=== PATIENT | female | born 1945 | race Caucasian/White ===

== ENCOUNTER 2018-04-26 20:47 | Inpatient (IN) | payer MEDICARE, MEDICAID ==
[2018-04-26 21:34] VITALS: BP 159/82
[2018-04-26] MEDS ORDERED: Morphine Sulfate 4 mg/mL 1mL Syr IVP PRN ×2 (22:14→22:15)
[2018-04-27] MEDS: INSULIN ASPART SLIDING SCALE 100 UNITS/ML UNIT SUBQ SCH ×3 (06:36→18:14)
[2018-04-27 07:37] LABS: % BASOPHILS 0.8 % (0.0-2.0); % EOSINOPHILS 1.6 % (0.0-5.0); % LYMPHOCYTES 41.7 % (20.0-50.0); % MONOCYTES 6.5 % (2.0-10.0); % NEUTROPHILS 49.4 % (40.0-80.0); BASOPHILE ABSOLUTE 0.1 Th/cumm (0-0.2); EOSINOPHILE ABSOLUTE 0.1 Th/cmm (0.1-0.4); HEMATOCRIT 40.1 % (41.0-60); HEMOGLOBIN 13.2 gm/dL (12-16); LYMPHOCYTE ABSOLUTE 2.8 Th/cmm (1.5-3.0); MEAN CELL VOLUME 79.1 fl (81-100); MEAN CORPUSCULAR HGB CONC 32.9 pg (28.0-36.0); MEAN PLATELET VOLUME 10.3 fl; MONOCYTE ABSOLUTE 0.4 Th/cmm (0.3-1.0); NEUTROPHILE ABSOLUTE 3.4 Th/cmm (1.8-8.0); PLATELET COUNT 181 Th/cmm (150-400); RED BLOOD COUNT 5.06 Mil/cmm (3.80-5.20); RED CELL DISTRIBUTION WIDTH 13.8 % (11.5-20.0); WHITE BLOOD COUNT 6.8 Th/cmm (4.8-10.8)
[2018-04-27 07:49] LABS: ANION GAP 9.7 (7.0-16.0); BUN - UREA NITROGEN 21 mg/dL (7-25); CALCIUM SERUM 9.2 mg/dL (8.6-10.3); CARBON DIOXIDE 28.6 mEq/L (21.0-31.0); CHLORIDE 104 mEq/L (98-107); CREATININE - SERUM 0.7 mg/dL (0.6-1.2); GFR AFRICAN-AMERICAN > 60.0 ml/min (>90); GFR NON AFRICAN-AMERICAN > 60.0 ml/min; GLUCOSE 62 mg/dL (70-105); POTASSIUM SERUM 3.3 mEq/L (3.5-5.1); SODIUM SERUM 139 mEq/L (136-145)
[2018-04-27] MEDS: Aspirin 81mg Chewable Tab PO SCH (09:53)
--- NOTE | 2018-04-27 12:17 | Diagnostic Imaging Report ---
Carotid ultrasound HISTORY: TIA COMPARISON: None Technique: Longitudinal and transverse sonographic sector images of the carotid arteries were obtained with doppler analysis. FINDINGS: Exam right-sided demonstrates intimal thickening and mild to moderate atherosclerotic vascular disease. No evidence of elevated velocities or velocity ratios. Exam left side demonstrates intimal thickening and moderate to severe generalized atherosclerotic vascular disease. No evidence of elevated velocities. There is elevated velocity ratio on the left side measuring 2.5. Antegrade vertebral artery flow is demonstrated bilaterally. IMPRESSION: Bilateral generalized atherosclerosis greatest on the left side with moderate to severe atherosclerosis seen on the left side. There is also elevated velocity ratio on the left side. Note 50-69% vessel narrowing on the left side cannot be excluded. If indicated dedicated CT angiography of the neck may be obtained for further assessment.
[2018-04-27 16:13] LABS: CHOLESTEROL 279 mg/dL (<200); HDL -HIGH DENSITY LIPOPROTEIN 47 mg/dL (23-92); TRIGLYCERIDES 298 mg/dL (<150)
[2018-04-27] MEDS: Hydrocodone/APAP 5mg/325mg Tab PO PRN (20:26)
--- NOTE | 2018-04-27 20:48 | History & Physical ---
ADMIT DATE: 04/26/2018 A 72-year-old female patient transferred from [place] for TIA and possible stroke. HISTORY OF PRESENT ILLNESS: A 72-year-old female complaining of headache and facial numbness and tingling, presented with intermittent moderate pressure-like headache and also experienced left facial tingling and was seen in the Emergency Room and had a complete workup. The patient possibly had a mini stroke according to the M.D. and the patient was transferred in stable condition. The patient is known to have history of coronary artery disease status post coronary artery bypass surgery, history of hypertension, hypercholesterolemia, neuropathy. PHYSICAL EXAMINATION: GENERAL: The patient was alert. VITAL SIGNS: Blood pressure 184/72, heart rate was 80, respirations was normal. NECK: Supple, nontender. LUNGS: Clear. CARDIOVASCULAR SYSTEM: S1, S2 heard. ABDOMEN: Soft. Bowel sounds are heard. NEUROLOGIC: She was alert. The patient has no facial asymmetry, but some numbness in the left side. Tongue was in midline. The patient does admit that insight appears to be normal and the patient had ataxia. LABORATORY DATA: CAT scan showed no findings. She had CBC with white count 6.6, hemoglobin 13, hematocrit 38. DIAGNOSES: 1. Transient cerebral ischemia. 2. Rule out cerebrovascular accident. 3. History of coronary artery disease. 4. Diabetes. 5. Essential hypertension. 6. Hypercholesterolemia. 7. Hypothyroidism. PLAN: The patient is being admitted and I will go ahead and do a neurological and cardiological workup and I will follow the patient. JOB# [id number] [id number]
[2018-04-28] MEDS: INSULIN ASPART SLIDING SCALE 100 UNITS/ML UNIT SUBQ SCH ×5 (00:20→23:56)
[2018-04-28] MEDS: Aspirin 81mg Chewable Tab PO SCH (09:19)
--- NOTE | 2018-04-28 16:16 | Cardiology ---
04/28/[address] Sanchez. M-MODE ECHOCARDIOGRAM: Mitral valve, anterior leaflet of mitral valve shows normal excursion, EF velocity. Posterior leaflet of the mitral valve shows normal excursion. Left ventricular posterior wall shows normal thickness, excursion. Interventricular septum showed normal thickness, excursion. Ejection fraction 50%. Left atrium normal. Aortic root shows normal dimension, normal excursion of aortic leaflets. Short axis view of mitral valve normal. Short axis view of aortic valve normal. Apical four chamber view showed normal sized left ventricle, left atrium, right ventricle, right atrium, tricuspid and mitral valve. Ejection fraction is 50%. CONCLUSION: Hypertrophy of the left ventricle, ejection fraction 50%. Doppler study shows trace pulmonary regurgitation, right ventricular systolic pressure 30 mmHg. JOB# [id number]
[2018-04-28 16:22] LABS: ANION GAP 9.4 (7.0-16.0); BUN - UREA NITROGEN 31 mg/dL (7-25); CALCIUM SERUM 9.5 mg/dL (8.6-10.3); CARBON DIOXIDE 27.6 mEq/L (21.0-31.0); CHLORIDE 99 mEq/L (98-107); CREATININE - SERUM 0.9 mg/dL (0.6-1.2); GFR AFRICAN-AMERICAN > 60.0 ml/min (>90); GFR NON AFRICAN-AMERICAN > 60.0 ml/min; GLUCOSE 203 mg/dL (70-105); SODIUM SERUM 132 mEq/L (136-145)
[2018-04-28 20:41] LABS: A1C % 7.6 % (4.0-6.0)
[2018-04-28] MEDS: Hydrocodone/APAP 5mg/325mg Tab PO PRN (23:50)
[2018-04-29] MEDS: Hydrocodone/APAP 5mg/325mg Tab PO PRN ×3 (05:28→22:01)
[2018-04-29] MEDS: INSULIN ASPART SLIDING SCALE 100 UNITS/ML UNIT SUBQ SCH ×3 (05:51→17:55)
[2018-04-29] MEDS: Aspirin 81mg Chewable Tab PO SCH (09:35)
[2018-04-29] MEDS ORDERED: IOHEXOL 300mgI/mL 100 ML VIAL IVP ONE (10:54)
--- NOTE | 2018-04-29 10:59 | Consultation ---
DATE OF CONSULTATION: 04/26/[address] Sanchez. HISTORY AND PHYSICAL: This 72-year-old female patient complaining of headache with numbness and tingling of the face. The patient came to the Emergency Room and the patient is admitted for TIA. No history of chest pain, no palpitation. PAST MEDICAL HISTORY: The patient has a history of angina, coronary artery bypass, hypertension, hyperlipidemia, diabetes mellitus type 2, hypothyroidism, diabetic peripheral neuropathy. FAMILY HISTORY: Unremarkable. SOCIAL HISTORY: No history of smoking, alcohol abuse. ALLERGIES: None. PHYSICAL EXAMINATION: VITAL SIGNS: Blood pressure 184/72, pulse 80, respirations 22. HEAD: Normocephalic. No lumps or bumps. EYES: Pupils equal, reactive to light. Fundi show AV nicking, sclerae white, conjunctivae pink. NECK: Carotid 2+. Normal upstroke. JVD flat. Thyroid not palpable. Lymph nodes not palpable. CHEST: Shows increased AP diameter. No kyphosis or scoliosis. HEART: PMI fifth intercostal space with lateral to midclavicular line. S1, S2. No S3, S4, soft systolic murmur. ABDOMEN: Soft. Liver, spleen not palpable. No organomegaly. Bowel sounds active. NEUROLOGIC: The patient has numbness in the face. CLINICAL IMPRESSION: Transient ischemic attack, stable angina, coronary artery bypass, hypertension, hyperlipidemia, diabetes mellitus type 2, hypothyroidism, diabetic peripheral neuropathy. PLAN: The patient will continue present care. The patient to have echocardiogram. [facility]# [id number]
--- NOTE | 2018-04-29 11:25 | Consultation ---
DATE OF CONSULTATION: 04/29/2018 SURGICAL CONSULTATION REFERRING PHYSICIAN: Dr. Sanchez. REASON FOR CONSULTATION: Small stroke. Thank you for referring this patient to me. HISTORY OF PRESENT ILLNESS: This is a 72-year-old female who was alert and awake, transferred from [place] because of TIA. In the Emergency Room, the patient was noted to have numbness and tingling of the right upper extremity with some numbness and tingling of left face as well. She had a similar episode 5 years ago. PAST MEDICAL HISTORY: Other history includes coronary artery disease, diabetes, hypertension, hypercholesterolemia, and hypothyroidism. LABORATORY STUDIES: On this admission are essentially normal. Carotid study; however, shows [id number] stenosis involving the left carotid artery. PHYSICAL EXAMINATION: The patient continues some tingling in the right upper extremity, no numbness or weakness is noted. Left facial numbness is essentially gone. In view of the carotid stenosis on ultrasound, this will likely reflect the etiology of the TIA. We will order CT angiogram of the head and neck to determine the extent of vascular disease and recommend treatment as necessary. [facility]# [id number]
--- NOTE | 2018-04-29 12:25 | Diagnostic Imaging Report ---
Exam: CT examination of brain. HISTORY: Left carotid stenosis. Total DLP equals 661 CTDI equals 36.1 Findings: Multiple contiguous thin section of the brain were obtained from the base of skull to the vertex without administration intravenous contrast material. No prior studies available comparison. The study demonstrates normal density brain parenchyma. Normal enhancement pattern of the intracranial vasculature is noted. There is no evidence for hemorrhage midline shift or edema. The cerebellum is intact. There is evidence for low density area in left cerebellar hemisphere most likely represent old infarct or encephalomalacia subarachnoid cyst. Bony calvarium is normal. The paranasal sinuses are well aerated. IMPRESSION: Unremarkable examination of brain with contrast material Questionable old left cerebellar infarct versus encephalomalacia.
[2018-04-29] MEDS ORDERED: IOHEXOL 350mgI/mL 150mL IV ONE (16:22)
--- NOTE | 2018-04-29 16:43 | Internal Medicine Prog Note ---
Internal Medicine Subjective - Subjective Service Date: 04/29/18 Patient seen and examined:: with staff Patient is:: awake, verbal Per staff patient has:: tolerating meds Internal Medicine Objective - Results Result Diagrams: 04/27/18 07:00 04/28/18 16:02 Recent Labs: Laboratory Last Values WBC 6.8 Th/cmm (4.8-10.8) 04/27/18 07:00 RBC 5.06 Mil/cmm (3.80-5.20) 04/27/18 07:00 Hgb 13.2 gm/dL (12-16) 04/27/18 07:00 Hct 40.1 % (41.0-60) L 04/27/18 07:00 MCV 79.1 fl (81-100) L 04/27/18 07:00 MCH 26.0 pg (27.0-31.0) L 04/27/18 07:00 MCHC Differential 32.9 pg (28.0-36.0) 04/27/18 07:00 RDW 13.8 % (11.5-20.0) 04/27/18 07:00 Plt Count 181 Th/cmm (150-400) 04/27/18 07:00 MPV 10.3 fl 04/27/18 07:00 Neutrophils % 49.4 % (40.0-80.0) 04/27/18 07:00 Lymphocytes % 41.7 % (20.0-50.0) 04/27/18 07:00 Monocytes % 6.5 % (2.0-10.0) 04/27/18 07:00 Eosinophils % 1.6 % (0.0-5.0) 04/27/18 07:00 Basophils % 0.8 % (0.0-2.0) 04/27/18 07:00 Sodium 132 mEq/L (136-145) L 04/28/18 16:02 Potassium 4.0 mEq/L (3.5-5.1) 04/28/18 16:02 Chloride 99 mEq/L (98-107) 04/28/18 16:02 Carbon Dioxide 27.6 mEq/L (21.0-31.0) 04/28/18 16:02 Anion Gap 9.4 (7.0-16.0) 04/28/18 16:02 BUN 31 mg/dL (7-25) H 04/28/18 16:02 Creatinine 0.9 mg/dL (0.6-1.2) 04/28/18 16:02 Est GFR ( Amer) > 60.0 ml/min (>90) 04/28/18 16:02 Est GFR (Non-Af Amer) > 60.0 ml/min 04/28/18 16:02 BUN/Creatinine Ratio 34.4 04/28/18 16:02 Glucose 203 mg/dL (70-105) H 04/28/18 16:02 POC Glucose 169 MG/DL (70 - 105) H 04/29/18 12:05 Hemoglobin A1c % 7.6 % (4.0-6.0) H 04/28/18 16:02 Calcium 9.5 mg/dL (8.6-10.3) 04/28/18 16:02 Troponin I 0.01 ng/mL (0.01-0.05) 04/27/18 15:15 Triglycerides 298 mg/dL (<150) H 04/27/18 07:00 Cholesterol 279 mg/dL (<200) H 04/27/18 07:00 LDL Cholesterol Direct 171 mg/dL (75-193) 04/27/18 07:00 HDL Cholesterol 47 mg/dL (23-92) 04/27/18 07:00 TSH 2.94 uIU/ml (0.34-5.60) 04/27/18 07:00 - Physical Exam Vitals and I&O: Vital Signs Temp 96.9 F 04/29/18 12:00 Pulse 63 04/29/18 12:00 Resp 18 04/29/18 13:00 BP 147/54 04/29/18 12:00 Pulse Ox 96 04/29/18 12:00 Intake & Output 04/28/18 04/29/18 04/29/18 18:59 06:59 18:59 Intake Total 150 Balance 150 Weight (lbs) 158 lb 159 lb 9 oz Intake: Oral 150 Other: # Voids 2 # Bowel Movements 0 Stool Characteristics Soft Soft Soft Weight Source Bedscale Bedscale Active Medications: Current Medications Acetaminophen (Tylenol) 650 mg PO Q6H PRN PRN Reason: MILD PAIN OR HEADACHE Stop: 06/25/18 22:12 Last Admin: 04/28/18 18:11 Dose: 650 mg Acetaminophen/Hydrocodone Bitart ([place] 5mg/325mg) 1 tab PO Q6H PRN PRN Reason: Headache Stop: 06/26/18 19:47 Last Admin: 04/29/18 14:42 Dose: 1 tab Aspirin (Aspirin Chewable) 81 mg PO DAILY RM Stop: 06/26/18 08:59 Last Admin: 04/29/18 09:35 Dose: 81 mg Insulin Aspart (Novolog Insulin Sliding Scale) 0 units SUBQ Q6HR RM; Protocol Stop: 06/26/18 05:59 Last Admin: 04/29/18 12:30 Dose: 2 units Metoprolol Succinate (Toprol Xl) 25 mg PO DAILY RM Stop: 06/26/18 08:59 Last Admin: 04/29/18 09:35 Dose: 25 mg Morphine Sulfate (Morphine) 2 mg IVP Q4HR PRN PRN Reason: Pain (Severe) Stop: 06/25/18 22:13 Morphine Sulfate (Morphine) 1 mg IVP Q4HR PRN PRN Reason: Pain (Moderate) Stop: 06/25/18 22:14 Ondansetron HCl (Zofran) 4 mg IV Q6H PRN PRN Reason: Nausea / Vomiting Stop: 06/25/18 22:15 Temazepam (Restoril) 30 mg PO HS PRN; Protocol PRN Reason: Insomnia Stop: 06/26/18 22:51 General: weak, alert HEENT: NC/AT, PERRLA Neck: Supple Lungs: CTAB Cardiovascular: RRR, Normal S1, Normal S2, without murmur Abdomen: soft, non-tender, non-distended Neurological: alert Internal Medicine Assmt/Plan - Assessment Assessment: TIA R/O CVA- CT HEAD NEGATIVE, OLD INFARCT HX CAD DM HTN HYPERCHOLESTEREMIA HYPOTHYROIDISM - Plan Plan: CTA NECK TO BE DONE TODAY CBC/BMP IN AM FALL PRECAUTIONS NEUROLOGY TO FOLLOW UP APPRECIATE CARDIOLOGY RECOMMENDATIONS CONTINUE CURRENT PLAN OF CARE Nutritional Asmnt/Malnutr-PDOC - Dietary Evaluation Malnutrition Findings (Please click <Entered> for more info): Nutritional Asmnt/Malnutrition Start: 04/29/18 13: 51 Text: Status: Active Freq: Protocol: Document 04/29/18 13:51 LLUC (Rec: 04/29/18 14:02 LLUC [email or web address]) Nutritional Asmnt/Malnutrition Patient General Information Nutritional Screening Moderate Risk Diagnosis TIA Pertinent Medical Hx/Surgical Hx CAD s/p bypass, HTN, Hypercholesterolemia, neuropathy, DM, hypothyroidism Subjective Information PO intake 75-100% per EMR. Current Diet Order/ Nutrition Support CCHO - 45g Pertinent Medications novolog, zofran Pertinent Labs 04/28/18: Na 132, BUN 31, Crea 0 .9, Gluc 203, POC 139-224, A1C 7.6 Nutritional Hx/Data Height 5 ft Height (Calculated Centimeters) 152.4 Current Weight (lbs) 159 lb Weight (Calculated Kilograms) 72.1 Weight (Calculated Grams) 33238.2 [place] Body Weight 100 % [place] Body Weight 159 Body Mass Index (BMI) 31.0 Weight Status Obese GI Symptoms Skin Integrity/Comment: Intact but slightly moist, jose 14 per nursing Current %PO Good (75-100%) Estimated Nutritional Goals BEE in Kcals: Adj wt of IBW Calories/Kcals/Kg 25-30 Kcals/Kg Kcals Calculated 6090-6667 Protein: Adj wt of IBW Protein g/k.8-1 g/Kg Protein Calculated 42-52g Fluid: ml 4375-3799 mL/day (1mL/kcal) Nutritional Problem 1. Problem Problem Altered nutrition-related labs Etiology insulin resistance Signs/Symptoms: hyperglycemia, POC 139-224, A1C 7.6% Malnutrition Related to Morbid Obesity Malnutrition related to morbid obesity No Intervention/Recommendation Comments 1. Recommend continuing current diet order. 2. Recommend MD to adjust insulin regimen to minimize hyperglycemia. Expected Outcomes/Goals Expected Outcomes/Goals Goal: PO intake to meet at least 75% of nutritional needs . Monitor PO intake, wt, labs and skin integrity F/U as moderate risk in 3-5 days, 05/02-05/04
[2018-04-30] MEDS: INSULIN ASPART SLIDING SCALE 100 UNITS/ML UNIT SUBQ SCH ×4 (06:00→17:36)
[2018-04-30 07:12] LABS: % BASOPHILS 0.8 % (0.0-2.0); % EOSINOPHILS 1.9 % (0.0-5.0); % LYMPHOCYTES 41.9 % (20.0-50.0); % MONOCYTES 7.7 % (2.0-10.0); % NEUTROPHILS 47.7 % (40.0-80.0); BASOPHILE ABSOLUTE 0.1 Th/cumm (0-0.2); EOSINOPHILE ABSOLUTE 0.1 Th/cmm (0.1-0.4); HEMATOCRIT 37.2 % (41.0-60); HEMOGLOBIN 12.2 gm/dL (12-16); LYMPHOCYTE ABSOLUTE 3.2 Th/cmm (1.5-3.0); MEAN CELL VOLUME 80.2 fl (81-100); MEAN CORPUSCULAR HEMOGLOBIN 26.2 pg (27.0-31.0); MEAN CORPUSCULAR HGB CONC 32.7 pg (28.0-36.0); MEAN PLATELET VOLUME 10.1 fl; MONOCYTE ABSOLUTE 0.6 Th/cmm (0.3-1.0); NEUTROPHILE ABSOLUTE 3.6 Th/cmm (1.8-8.0); PLATELET COUNT 199 Th/cmm (150-400); RED BLOOD COUNT 4.63 Mil/cmm (3.80-5.20); RED CELL DISTRIBUTION WIDTH 13.3 % (11.5-20.0); WHITE BLOOD COUNT 7.6 Th/cmm (4.8-10.8)
[2018-04-30 07:35] LABS: ANION GAP 10.5 (7.0-16.0); BUN - UREA NITROGEN 29 mg/dL (7-25); CALCIUM SERUM 9.1 mg/dL (8.6-10.3); CARBON DIOXIDE 27.2 mEq/L (21.0-31.0); CHLORIDE 101 mEq/L (98-107); CREATININE - SERUM 0.9 mg/dL (0.6-1.2); GFR AFRICAN-AMERICAN > 60.0 ml/min (>90); GFR NON AFRICAN-AMERICAN > 60.0 ml/min; GLUCOSE 114 mg/dL (70-105); POTASSIUM SERUM 3.7 mEq/L (3.5-5.1); SODIUM SERUM 135 mEq/L (136-145)
[2018-04-30] MEDS: Aspirin 81mg Chewable Tab PO SCH (08:17)
[2018-04-30] MEDS: Hydrocodone/APAP 5mg/325mg Tab PO PRN (08:17)
--- NOTE | 2018-04-30 09:09 | General Progress Note ---
Subjective - Review of Systems Service Date: 04/30/01 Events since last encounter: CTA done but did not include carotid will order MRA of carotid Objective - Results Result Diagrams: 04/30/18 06:08 04/30/18 06:08 Recent Labs: Laboratory Last Values WBC 7.6 Th/cmm (4.8-10.8) 04/30/18 06:08 RBC 4.63 Mil/cmm (3.80-5.20) 04/30/18 06:08 Hgb 12.2 gm/dL (12-16) 04/30/18 06:08 Hct 37.2 % (41.0-60) L 04/30/18 06:08 MCV 80.2 fl (81-100) L 04/30/18 06:08 MCH 26.2 pg (27.0-31.0) L 04/30/18 06:08 MCHC Differential 32.7 pg (28.0-36.0) 04/30/18 06:08 RDW 13.3 % (11.5-20.0) 04/30/18 06:08 Plt Count 199 Th/cmm (150-400) 04/30/18 06:08 MPV 10.1 fl 04/30/18 06:08 Neutrophils % 47.7 % (40.0-80.0) 04/30/18 06:08 Lymphocytes % 41.9 % (20.0-50.0) 04/30/18 06:08 Monocytes % 7.7 % (2.0-10.0) 04/30/18 06:08 Eosinophils % 1.9 % (0.0-5.0) 04/30/18 06:08 Basophils % 0.8 % (0.0-2.0) 04/30/18 06:08 Sodium 135 mEq/L (136-145) L 04/30/18 06:08 Potassium 3.7 mEq/L (3.5-5.1) 04/30/18 06:08 Chloride 101 mEq/L (98-107) 04/30/18 06:08 Carbon Dioxide 27.2 mEq/L (21.0-31.0) 04/30/18 06:08 Anion Gap 10.5 (7.0-16.0) 04/30/18 06:08 BUN 29 mg/dL (7-25) H 04/30/18 06:08 Creatinine 0.9 mg/dL (0.6-1.2) 04/30/18 06:08 Est GFR ( Amer) > 60.0 ml/min (>90) 04/30/18 06:08 Est GFR (Non-Af Amer) > 60.0 ml/min 04/30/18 06:08 BUN/Creatinine Ratio 32.2 04/30/18 06:08 Glucose 114 mg/dL (70-105) H 04/30/18 06:08 POC Glucose 155 MG/DL (70 - 105) H 04/29/18 17:47 Hemoglobin A1c % 7.6 % (4.0-6.0) H 04/28/18 16:02 Calcium 9.1 mg/dL (8.6-10.3) 04/30/18 06:08 Troponin I 0.01 ng/mL (0.01-0.05) 04/27/18 15:15 Triglycerides 298 mg/dL (<150) H 04/27/18 07:00 Cholesterol 279 mg/dL (<200) H 04/27/18 07:00 LDL Cholesterol Direct 171 mg/dL (75-193) 04/27/18 07:00 HDL Cholesterol 47 mg/dL (23-92) 04/27/18 07:00 TSH 2.94 uIU/ml (0.34-5.60) 04/27/18 07:00 - Physical Exam Vitals and I&O: Vital Signs Temp 97.9 F 04/30/18 08:00 Pulse 61 04/30/18 08:16 Resp 18 04/30/18 08:00 BP 119/65 04/30/18 08:16 Pulse Ox 95 04/30/18 08:00 Intake & Output 04/29/18 04/30/18 04/30/18 18:59 06:59 18:59 Intake Total 700 240 Balance 700 240 Weight (lbs) 72.376 kg 71.214 kg Intake: Oral 700 240 Other: # Voids 3 2 Stool Characteristics Soft Soft Weight Source Bedscale Bedscale Active Medications: Current Medications Acetaminophen (Tylenol) 650 mg PO Q6H PRN PRN Reason: MILD PAIN OR HEADACHE Stop: 06/25/18 22:12 Last Admin: 04/28/18 18:11 Dose: 650 mg Acetaminophen/Hydrocodone Bitart ([place] 5mg/325mg) 1 tab PO Q6H PRN PRN Reason: Headache Stop: 06/26/18 19:47 Last Admin: 04/30/18 08:17 Dose: 1 tab Aspirin (Aspirin Chewable) 81 mg PO DAILY [facility] Stop: 06/26/18 08:59 Last Admin: 04/30/18 08:17 Dose: 81 mg Insulin Aspart (Novolog Insulin Sliding Scale) 0 units SUBQ Q6HR RM; Protocol Stop: 06/26/18 05:59 Last Admin: 04/30/18 06:00 Dose: Not Given Metoprolol Succinate (Toprol Xl) 25 mg PO DAILY [facility] Stop: 06/26/18 08:59 Last Admin: 04/30/18 08:16 Dose: 25 mg Morphine Sulfate (Morphine) 2 mg IVP Q4HR PRN PRN Reason: Pain (Severe) Stop: 06/25/18 22:13 Morphine Sulfate (Morphine) 1 mg IVP Q4HR PRN PRN Reason: Pain (Moderate) Stop: 06/25/18 22:14 Ondansetron HCl (Zofran) 4 mg IV Q6H PRN PRN Reason: Nausea / Vomiting Stop: 06/25/18 22:15 Temazepam (Restoril) 30 mg PO HS PRN; Protocol PRN Reason: Insomnia Stop: 06/26/18 22:51 Nutritional Asmnt/Malnutr-PDOC - Dietary Evaluation Malnutrition Findings (Please click <Entered> for more info): Nutritional Asmnt/Malnutrition Start: 04/29/18 13: 51 Text: Status: Complete Freq: Protocol: Document 04/29/18 13:51 LLUC (Rec: 04/29/18 14:02 LLUC [email or web address]) Nutritional Asmnt/Malnutrition Patient General Information Nutritional Screening Moderate Risk Diagnosis TIA Pertinent Medical Hx/Surgical Hx CAD s/p bypass, HTN, Hypercholesterolemia, neuropathy, DM, hypothyroidism Subjective Information PO intake 75-100% per EMR. Per RN, PO intake good, no issues with meals noted. Current Diet Order/ Nutrition Support CCHO - 45g Pertinent Medications novolog, zofran Pertinent Labs 04/28/18: Na 132, BUN 31, Crea 0 .9, Gluc 203, POC 139-224, A1C 7.6 Nutritional Hx/Data Height 1.52 m Height (Calculated Centimeters) 152.4 Current Weight (lbs) 72.121 kg Weight (Calculated Kilograms) 72.1 Weight (Calculated Grams) 55456.2 [place] Body Weight 100 % [place] Body Weight 159 Body Mass Index (BMI) 31.0 Weight Status Obese GI Symptoms GI Symptoms None Difficult in: None Food Allergies No Cultural/Ethnic/Yazidism Belief unknown Usual diet at home unknown Skin Integrity/Comment: Intact but slightly moist, jose 14 per nursing Current %PO Good (75-100%) Estimated Nutritional Goals BEE in Kcals: Adj wt of IBW Calories/Kcals/Kg 25-30 Kcals/Kg Kcals Calculated 5218-7452 Protein: Adj wt of IBW Protein g/k.8-1 g/Kg Protein Calculated 42-52g Fluid: ml 0615-3690 mL/day (1mL/kcal) Nutritional Problem 1. Problem Problem Altered nutrition-related labs Etiology insulin resistance Signs/Symptoms: hyperglycemia, POC 139-224, A1C 7.6% Malnutrition Related to Morbid Obesity Malnutrition related to morbid obesity No Intervention/Recommendation Comments 1. Recommend continuing current diet order. 2. Recommend MD to adjust insulin regimen to minimize hyperglycemia. Expected Outcomes/Goals Expected Outcomes/Goals Goal: PO intake to meet at least 75% of nutritional needs . Monitor PO intake, wt, labs and skin integrity F/U as moderate risk in 3-5 days, 05/02-05/04
--- NOTE | 2018-04-30 10:14 | General Progress Note ---
Subjective - Review of Systems Events since last encounter: awake verbal tolerating meds Objective - Results Result Diagrams: 04/30/18 06:08 04/30/18 06:08 Recent Labs: Laboratory Last Values WBC 7.6 Th/cmm (4.8-10.8) 04/30/18 06:08 RBC 4.63 Mil/cmm (3.80-5.20) 04/30/18 06:08 Hgb 12.2 gm/dL (12-16) 04/30/18 06:08 Hct 37.2 % (41.0-60) L 04/30/18 06:08 MCV 80.2 fl (81-100) L 04/30/18 06:08 MCH 26.2 pg (27.0-31.0) L 04/30/18 06:08 MCHC Differential 32.7 pg (28.0-36.0) 04/30/18 06:08 RDW 13.3 % (11.5-20.0) 04/30/18 06:08 Plt Count 199 Th/cmm (150-400) 04/30/18 06:08 MPV 10.1 fl 04/30/18 06:08 Neutrophils % 47.7 % (40.0-80.0) 04/30/18 06:08 Lymphocytes % 41.9 % (20.0-50.0) 04/30/18 06:08 Monocytes % 7.7 % (2.0-10.0) 04/30/18 06:08 Eosinophils % 1.9 % (0.0-5.0) 04/30/18 06:08 Basophils % 0.8 % (0.0-2.0) 04/30/18 06:08 Sodium 135 mEq/L (136-145) L 04/30/18 06:08 Potassium 3.7 mEq/L (3.5-5.1) 04/30/18 06:08 Chloride 101 mEq/L (98-107) 04/30/18 06:08 Carbon Dioxide 27.2 mEq/L (21.0-31.0) 04/30/18 06:08 Anion Gap 10.5 (7.0-16.0) 04/30/18 06:08 BUN 29 mg/dL (7-25) H 04/30/18 06:08 Creatinine 0.9 mg/dL (0.6-1.2) 04/30/18 06:08 Est GFR ( Amer) > 60.0 ml/min (>90) 04/30/18 06:08 Est GFR (Non-Af Amer) > 60.0 ml/min 04/30/18 06:08 BUN/Creatinine Ratio 32.2 04/30/18 06:08 Glucose 114 mg/dL (70-105) H 04/30/18 06:08 POC Glucose 155 MG/DL (70 - 105) H 04/29/18 17:47 Hemoglobin A1c % 7.6 % (4.0-6.0) H 04/28/18 16:02 Calcium 9.1 mg/dL (8.6-10.3) 04/30/18 06:08 Troponin I 0.01 ng/mL (0.01-0.05) 04/27/18 15:15 Triglycerides 298 mg/dL (<150) H 04/27/18 07:00 Cholesterol 279 mg/dL (<200) H 04/27/18 07:00 LDL Cholesterol Direct 171 mg/dL (75-193) 04/27/18 07:00 HDL Cholesterol 47 mg/dL (23-92) 04/27/18 07:00 TSH 2.94 uIU/ml (0.34-5.60) 04/27/18 07:00 - Physical Exam Vitals and I&O: Vital Signs Temp 97.9 F 04/30/18 08:00 Pulse 61 04/30/18 08:16 Resp 18 04/30/18 09:00 BP 119/65 04/30/18 08:16 Pulse Ox 95 04/30/18 08:00 Intake & Output 04/29/18 04/30/18 04/30/18 18:59 06:59 18:59 Intake Total 700 240 Balance 700 240 Weight (lbs) 72.376 kg 71.214 kg Intake: Oral 700 240 Other: # Voids 3 2 Stool Characteristics Soft Soft Soft Weight Source Bedscale Bedscale Active Medications: Current Medications Acetaminophen (Tylenol) 650 mg PO Q6H PRN PRN Reason: MILD PAIN OR HEADACHE Stop: 06/25/18 22:12 Last Admin: 04/28/18 18:11 Dose: 650 mg Acetaminophen/Hydrocodone Bitart ([place] 5mg/325mg) 1 tab PO Q6H PRN PRN Reason: Headache Stop: 06/26/18 19:47 Last Admin: 04/30/18 08:17 Dose: 1 tab Aspirin (Aspirin Chewable) 81 mg PO DAILY [facility] Stop: 06/26/18 08:59 Last Admin: 04/30/18 08:17 Dose: 81 mg Insulin Aspart (Novolog Insulin Sliding Scale) 0 units SUBQ Q6HR RM; Protocol Stop: 06/26/18 05:59 Last Admin: 04/30/18 06:00 Dose: Not Given Metoprolol Succinate (Toprol Xl) 25 mg PO DAILY RM Stop: 06/26/18 08:59 Last Admin: 04/30/18 08:16 Dose: 25 mg Morphine Sulfate (Morphine) 2 mg IVP Q4HR PRN PRN Reason: Pain (Severe) Stop: 06/25/18 22:13 Morphine Sulfate (Morphine) 1 mg IVP Q4HR PRN PRN Reason: Pain (Moderate) Stop: 06/25/18 22:14 Ondansetron HCl (Zofran) 4 mg IV Q6H PRN PRN Reason: Nausea / Vomiting Stop: 06/25/18 22:15 Temazepam (Restoril) 30 mg PO HS PRN; Protocol PRN Reason: Insomnia Stop: 06/26/18 22:51 Nutritional Asmnt/Malnutr-PDOC - Dietary Evaluation Malnutrition Findings (Please click <Entered> for more info): Nutritional Asmnt/Malnutrition Start: 04/29/18 13: 51 Text: Status: Complete Freq: Protocol: Document 04/29/18 13:51 LLUC (Rec: 04/29/18 14:02 LLUC [email or web address]) Nutritional Asmnt/Malnutrition Patient General Information Nutritional Screening Moderate Risk Diagnosis TIA Pertinent Medical Hx/Surgical Hx CAD s/p bypass, HTN, Hypercholesterolemia, neuropathy, DM, hypothyroidism Subjective Information PO intake 75-100% per EMR. Per RN, PO intake good, no issues with meals noted. Current Diet Order/ Nutrition Support CCHO - 45g Pertinent Medications novolog, zofran Pertinent Labs 04/28/18: Na 132, BUN 31, Crea 0 .9, Gluc 203, POC 139-224, A1C 7.6 Nutritional Hx/Data Height 1.52 m Height (Calculated Centimeters) 152.4 Current Weight (lbs) 72.121 kg Weight (Calculated Kilograms) 72.1 Weight (Calculated Grams) 48579.2 [place] Body Weight 100 % [place] Body Weight 159 Body Mass Index (BMI) 31.0 Weight Status Obese GI Symptoms GI Symptoms None Difficult in: None Food Allergies No Cultural/Ethnic/Oriental Orthodox Belief unknown Usual diet at home unknown Skin Integrity/Comment: Intact but slightly moist, jose 14 per nursing Current %PO Good (75-100%) Estimated Nutritional Goals BEE in Kcals: Adj wt of IBW Calories/Kcals/Kg 25-30 Kcals/Kg Kcals Calculated 7951-6009 Protein: Adj wt of IBW Protein g/k.8-1 g/Kg Protein Calculated 42-52g Fluid: ml 5483-3730 mL/day (1mL/kcal) Nutritional Problem 1. Problem Problem Altered nutrition-related labs Etiology insulin resistance Signs/Symptoms: hyperglycemia, POC 139-224, A1C 7.6% Malnutrition Related to Morbid Obesity Malnutrition related to morbid obesity No Intervention/Recommendation Comments 1. Recommend continuing current diet order. 2. Recommend MD to adjust insulin regimen to minimize hyperglycemia. Expected Outcomes/Goals Expected Outcomes/Goals Goal: PO intake to meet at least 75% of nutritional needs . Monitor PO intake, wt, labs and skin integrity F/U as moderate risk in 3-5 days, 05/02-05/04
--- NOTE | 2018-04-30 10:39 | Diagnostic Imaging Report ---
CT angiogram of the neck with IV contrast History: Atherosclerotic vascular disease Comparison: Ultrasound carotid on 04/27/2018 Technique/procedure: Axial images were obtained from the vertex to the upper chest with IV contrast, angiogram protocol. Reconstructions were made. Total DLP 183, CTD I 35 Findings: The visualized paranasal sinuses demonstrate mild mucosal thickening. The bilateral peripharyngeal fat planes are preserved. The airways patent. The thyroid gland is grossly unremarkable. Degenerative changes of the spine are noted. The right vertebral artery may end in PICA . There is moderate atherosclerosis involving the right carotid bulb and proximal common carotid artery with estimated 25 % vessel narrowing in this region. There is moderate atherosclerosis involving the left carotid bulb and proximal left common carotid artery with estimated 40% vessel narrowing in this region. Mild atherosclerosis of the carotid siphons is noted. There is mild decreased caliber of the left middle cerebral artery. No evidence of an aneurysm or dissection. IMPRESSION: [id number]-[id number] atherosclerotic vascular disease greatest within the left carotid bulb with estimated 40% vessel narrowing at the left carotid bulb and proximal left internal carotid artery. There is estimated 25% vessel narrowing of the right carotid bulb and origin of the proximal right internal carotid artery. Incidentally noted decreased caliber of the left M1 segment of the MCA. This finding is indeterminate and may be phase of contrast opacification, however dedicated CT head angiogram or MRA of the head may be obtained for further assessment. Mild atherosclerosis of the carotid hyphens. The right vertebral artery may end PICA.
[2018-05-01] MEDS: Hydrocodone/APAP 5mg/325mg Tab PO PRN (00:06)
[2018-05-01] MEDS: INSULIN ASPART SLIDING SCALE 100 UNITS/ML UNIT SUBQ SCH ×4 (00:20→18:04)
--- NOTE | 2018-05-01 07:35 | General Progress Note ---
Subjective - Review of Systems Service Date: 05/01/18 Events since last encounter: Neck CTA only 40% stenosis of LICA on ASA, continue this no surgery Objective - Results Result Diagrams: 04/30/18 06:08 04/30/18 06:08 Recent Labs: Laboratory Last Values WBC 7.6 Th/cmm (4.8-10.8) 04/30/18 06:08 RBC 4.63 Mil/cmm (3.80-5.20) 04/30/18 06:08 Hgb 12.2 gm/dL (12-16) 04/30/18 06:08 Hct 37.2 % (41.0-60) L 04/30/18 06:08 MCV 80.2 fl (81-100) L 04/30/18 06:08 MCH 26.2 pg (27.0-31.0) L 04/30/18 06:08 MCHC Differential 32.7 pg (28.0-36.0) 04/30/18 06:08 RDW 13.3 % (11.5-20.0) 04/30/18 06:08 Plt Count 199 Th/cmm (150-400) 04/30/18 06:08 MPV 10.1 fl 04/30/18 06:08 Neutrophils % 47.7 % (40.0-80.0) 04/30/18 06:08 Lymphocytes % 41.9 % (20.0-50.0) 04/30/18 06:08 Monocytes % 7.7 % (2.0-10.0) 04/30/18 06:08 Eosinophils % 1.9 % (0.0-5.0) 04/30/18 06:08 Basophils % 0.8 % (0.0-2.0) 04/30/18 06:08 Sodium 135 mEq/L (136-145) L 04/30/18 06:08 Potassium 3.7 mEq/L (3.5-5.1) 04/30/18 06:08 Chloride 101 mEq/L (98-107) 04/30/18 06:08 Carbon Dioxide 27.2 mEq/L (21.0-31.0) 04/30/18 06:08 Anion Gap 10.5 (7.0-16.0) 04/30/18 06:08 BUN 29 mg/dL (7-25) H 04/30/18 06:08 Creatinine 0.9 mg/dL (0.6-1.2) 04/30/18 06:08 Est GFR ( Amer) > 60.0 ml/min (>90) 04/30/18 06:08 Est GFR (Non-Af Amer) > 60.0 ml/min 04/30/18 06:08 BUN/Creatinine Ratio 32.2 04/30/18 06:08 Glucose 114 mg/dL (70-105) H 04/30/18 06:08 POC Glucose 155 MG/DL (70 - 105) H 04/29/18 17:47 Hemoglobin A1c % 7.6 % (4.0-6.0) H 04/28/18 16:02 Calcium 9.1 mg/dL (8.6-10.3) 04/30/18 06:08 Troponin I 0.01 ng/mL (0.01-0.05) 04/27/18 15:15 Triglycerides 298 mg/dL (<150) H 04/27/18 07:00 Cholesterol 279 mg/dL (<200) H 04/27/18 07:00 LDL Cholesterol Direct 171 mg/dL (75-193) 04/27/18 07:00 HDL Cholesterol 47 mg/dL (23-92) 04/27/18 07:00 TSH 2.94 uIU/ml (0.34-5.60) 04/27/18 07:00 - Physical Exam Vitals and I&O: Vital Signs Temp 98.4 F 05/01/18 04:00 Pulse 57 05/01/18 06:12 Resp 18 05/01/18 04:00 BP 138/63 05/01/18 04:00 Pulse Ox 98 05/01/18 04:00 Intake & Output 04/30/18 05/01/18 05/01/18 18:59 06:59 18:59 Intake Total 500 300 Balance 500 300 Weight (lbs) 71.214 kg 71.214 kg Intake: Oral 500 300 Other: # Voids 3 1 Stool Characteristics Soft Soft Weight Source Bedscale Bedscale Active Medications: Current Medications Acetaminophen (Tylenol) 650 mg PO Q6H PRN PRN Reason: MILD PAIN OR HEADACHE Stop: 06/25/18 22:12 Last Admin: 04/28/18 18:11 Dose: 650 mg Acetaminophen/Hydrocodone Bitart ([place] 5mg/325mg) 1 tab PO Q6H PRN PRN Reason: Headache Stop: 06/26/18 19:47 Last Admin: 05/01/18 00:06 Dose: 1 tab Aspirin (Aspirin Chewable) 81 mg PO DAILY [facility]AC[facility] BY [facility] Stop: 06/26/18 08:59 Last Admin: 04/30/18 08:17 Dose: 81 mg Insulin Aspart (Novolog Insulin Sliding Scale) 0 units SUBQ Q6HR RM; Protocol Stop: 06/26/18 05:59 Last Admin: 05/01/18 06:08 Dose: Not Given Metoprolol Succinate (Toprol Xl) 25 mg PO DAILY [facility] Stop: 06/26/18 08:59 Last Admin: 04/30/18 08:16 Dose: 25 mg Morphine Sulfate (Morphine) 2 mg IVP Q4HR PRN PRN Reason: Pain (Severe) Stop: 06/25/18 22:13 Morphine Sulfate (Morphine) 1 mg IVP Q4HR PRN PRN Reason: Pain (Moderate) Stop: 06/25/18 22:14 Ondansetron HCl (Zofran) 4 mg IV Q6H PRN PRN Reason: Nausea / Vomiting Stop: 06/25/18 22:15 Temazepam (Restoril) 30 mg PO HS PRN; Protocol PRN Reason: Insomnia Stop: 06/26/18 22:51 Nutritional Asmnt/Malnutr-PDOC - Dietary Evaluation Malnutrition Findings (Please click <Entered> for more info): Nutritional Asmnt/Malnutrition Start: 04/29/18 13: 51 Text: Status: Complete Freq: Protocol: Document 04/29/18 13:51 LLUC (Rec: 04/29/18 14:02 LLUC [email or web address]) Nutritional Asmnt/Malnutrition Patient General Information Nutritional Screening Moderate Risk Diagnosis TIA Pertinent Medical Hx/Surgical Hx CAD s/p bypass, HTN, Hypercholesterolemia, neuropathy, DM, hypothyroidism Subjective Information PO intake 75-100% per EMR. Per RN, PO intake good, no issues with meals noted. Current Diet Order/ Nutrition Support CCHO - 45g Pertinent Medications novolog, zofran Pertinent Labs 04/28/18: Na 132, BUN 31, Crea 0 .9, Gluc 203, POC 139-224, A1C 7.6 Nutritional Hx/Data Height 1.52 m Height (Calculated Centimeters) 152.4 Current Weight (lbs) 72.121 kg Weight (Calculated Kilograms) 72.1 Weight (Calculated Grams) 70271.2 [place] Body Weight 100 % [place] Body Weight 159 Body Mass Index (BMI) 31.0 Weight Status Obese GI Symptoms GI Symptoms None Difficult in: None Food Allergies No Cultural/Ethnic/[employer] Belief unknown Usual diet at home unknown Skin Integrity/Comment: Intact but slightly moist, jose 14 per nursing Current %PO Good (75-100%) Estimated Nutritional Goals BEE in Kcals: Adj wt of IBW Calories/Kcals/Kg 25-30 Kcals/Kg Kcals Calculated 8159-6943 Protein: Adj wt of IBW Protein g/k.8-1 g/Kg Protein Calculated 42-52g Fluid: ml 0393-9538 mL/day (1mL/kcal) Nutritional Problem 1. Problem Problem Altered nutrition-related labs Etiology insulin resistance Signs/Symptoms: hyperglycemia, POC 139-224, A1C 7.6% Malnutrition Related to Morbid Obesity Malnutrition related to morbid obesity No Intervention/Recommendation Comments 1. Recommend continuing current diet order. 2. Recommend MD to adjust insulin regimen to minimize hyperglycemia. Expected Outcomes/Goals Expected Outcomes/Goals Goal: PO intake to meet at least 75% of nutritional needs . Monitor PO intake, wt, labs and skin integrity F/U as moderate risk in 3-5 days, 05/02-05/04
[2018-05-01] MEDS: Aspirin 81mg Chewable Tab PO SCH (10:23)
--- NOTE | 2018-05-01 11:12 | General Progress Note ---
Subjective - Review of Systems Events since last encounter: no change no distress Objective - Results Result Diagrams: 04/30/18 06:08 04/30/18 06:08 Recent Labs: Laboratory Last Values WBC 7.6 Th/cmm (4.8-10.8) 04/30/18 06:08 RBC 4.63 Mil/cmm (3.80-5.20) 04/30/18 06:08 Hgb 12.2 gm/dL (12-16) 04/30/18 06:08 Hct 37.2 % (41.0-60) L 04/30/18 06:08 MCV 80.2 fl (81-100) L 04/30/18 06:08 MCH 26.2 pg (27.0-31.0) L 04/30/18 06:08 MCHC Differential 32.7 pg (28.0-36.0) 04/30/18 06:08 RDW 13.3 % (11.5-20.0) 04/30/18 06:08 Plt Count 199 Th/cmm (150-400) 04/30/18 06:08 MPV 10.1 fl 04/30/18 06:08 Neutrophils % 47.7 % (40.0-80.0) 04/30/18 06:08 Lymphocytes % 41.9 % (20.0-50.0) 04/30/18 06:08 Monocytes % 7.7 % (2.0-10.0) 04/30/18 06:08 Eosinophils % 1.9 % (0.0-5.0) 04/30/18 06:08 Basophils % 0.8 % (0.0-2.0) 04/30/18 06:08 Sodium 135 mEq/L (136-145) L 04/30/18 06:08 Potassium 3.7 mEq/L (3.5-5.1) 04/30/18 06:08 Chloride 101 mEq/L (98-107) 04/30/18 06:08 Carbon Dioxide 27.2 mEq/L (21.0-31.0) 04/30/18 06:08 Anion Gap 10.5 (7.0-16.0) 04/30/18 06:08 BUN 29 mg/dL (7-25) H 04/30/18 06:08 Creatinine 0.9 mg/dL (0.6-1.2) 04/30/18 06:08 Est GFR ( Amer) > 60.0 ml/min (>90) 04/30/18 06:08 Est GFR (Non-Af Amer) > 60.0 ml/min 04/30/18 06:08 BUN/Creatinine Ratio 32.2 04/30/18 06:08 Glucose 114 mg/dL (70-105) H 04/30/18 06:08 POC Glucose 155 MG/DL (70 - 105) H 04/29/18 17:47 Hemoglobin A1c % 7.6 % (4.0-6.0) H 04/28/18 16:02 Calcium 9.1 mg/dL (8.6-10.3) 04/30/18 06:08 Troponin I 0.01 ng/mL (0.01-0.05) 04/27/18 15:15 Triglycerides 298 mg/dL (<150) H 04/27/18 07:00 Cholesterol 279 mg/dL (<200) H 04/27/18 07:00 LDL Cholesterol Direct 171 mg/dL (75-193) 04/27/18 07:00 HDL Cholesterol 47 mg/dL (23-92) 04/27/18 07:00 TSH 2.94 uIU/ml (0.34-5.60) 04/27/18 07:00 - Physical Exam Vitals and I&O: Vital Signs Temp 97.3 F 05/01/18 07:59 Pulse 58 05/01/18 10:25 Resp 18 05/01/18 08:20 BP 111/66 05/01/18 10:25 Pulse Ox 96 05/01/18 07:59 Intake & Output 04/30/18 05/01/18 05/01/18 18:59 06:59 18:59 Intake Total 500 300 Balance 500 300 Weight (lbs) 71.214 kg 71.214 kg Intake: Oral 500 300 Other: # Voids 3 1 Stool Characteristics Soft Soft Weight Source Bedscale Bedscale Active Medications: Current Medications Acetaminophen (Tylenol) 650 mg PO Q6H PRN PRN Reason: MILD PAIN OR HEADACHE Stop: 06/25/18 22:12 Last Admin: 04/28/18 18:11 Dose: 650 mg Acetaminophen/Hydrocodone Bitart ([place] 5mg/325mg) 1 tab PO Q6H PRN PRN Reason: Headache Stop: 06/26/18 19:47 Last Admin: 05/01/18 00:06 Dose: 1 tab Aspirin (Aspirin Chewable) 81 mg PO DAILY [facility] Stop: 06/26/18 08:59 Last Admin: 05/01/18 10:23 Dose: 81 mg Insulin Aspart (Novolog Insulin Sliding Scale) 0 units SUBQ Q6HR RM; Protocol Stop: 06/26/18 05:59 Last Admin: 05/01/18 06:08 Dose: Not Given Metoprolol Succinate (Toprol Xl) 25 mg PO DAILY [facility] Stop: 06/26/18 08:59 Last Admin: 05/01/18 10:25 Dose: Not Given Morphine Sulfate (Morphine) 2 mg IVP Q4HR PRN PRN Reason: Pain (Severe) Stop: 06/25/18 22:13 Morphine Sulfate (Morphine) 1 mg IVP Q4HR PRN PRN Reason: Pain (Moderate) Stop: 06/25/18 22:14 Ondansetron HCl (Zofran) 4 mg IV Q6H PRN PRN Reason: Nausea / Vomiting Stop: 06/25/18 22:15 Temazepam (Restoril) 30 mg PO HS PRN; Protocol PRN Reason: Insomnia Stop: 06/26/18 22:51 Nutritional Asmnt/Malnutr-PDOC - Dietary Evaluation Malnutrition Findings (Please click <Entered> for more info): Nutritional Asmnt/Malnutrition Start: 04/29/18 13: 51 Text: Status: Complete Freq: Protocol: Document 04/29/18 13:51 LLUC (Rec: 04/29/18 14:02 LLUC [email or web address]) Nutritional Asmnt/Malnutrition Patient General Information Nutritional Screening Moderate Risk Diagnosis TIA Pertinent Medical Hx/Surgical Hx CAD s/p bypass, HTN, Hypercholesterolemia, neuropathy, DM, hypothyroidism Subjective Information PO intake 75-100% per EMR. Per RN, PO intake good, no issues with meals noted. Current Diet Order/ Nutrition Support CCHO - 45g Pertinent Medications novolog, zofran Pertinent Labs 04/28/18: Na 132, BUN 31, Crea 0 .9, Gluc 203, POC 139-224, A1C 7.6 Nutritional Hx/Data Height 1.52 m Height (Calculated Centimeters) 152.4 Current Weight (lbs) 72.121 kg Weight (Calculated Kilograms) 72.1 Weight (Calculated Grams) 42404.2 [place] Body Weight 100 % [place] Body Weight 159 Body Mass Index (BMI) 31.0 Weight Status Obese GI Symptoms GI Symptoms None Difficult in: None Food Allergies No Cultural/Ethnic/[employer] Belief unknown Usual diet at home unknown Skin Integrity/Comment: Intact but slightly moist, jose 14 per nursing Current %PO Good (75-100%) Estimated Nutritional Goals BEE in Kcals: Adj wt of IBW Calories/Kcals/Kg 25-30 Kcals/Kg Kcals Calculated 6423-2921 Protein: Adj wt of IBW Protein g/k.8-1 g/Kg Protein Calculated 42-52g Fluid: ml 4062-2663 mL/day (1mL/kcal) Nutritional Problem 1. Problem Problem Altered nutrition-related labs Etiology insulin resistance Signs/Symptoms: hyperglycemia, POC 139-224, A1C 7.6% Malnutrition Related to Morbid Obesity Malnutrition related to morbid obesity No Intervention/Recommendation Comments 1. Recommend continuing current diet order. 2. Recommend MD to adjust insulin regimen to minimize hyperglycemia. Expected Outcomes/Goals Expected Outcomes/Goals Goal: PO intake to meet at least 75% of nutritional needs . Monitor PO intake, wt, labs and skin integrity F/U as moderate risk in 3-5 days, 05/02-05/04
[2018-05-02] MEDS: INSULIN ASPART SLIDING SCALE 100 UNITS/ML UNIT SUBQ SCH ×4 (00:40→18:52)
[2018-05-02] MEDS: Aspirin 81mg Chewable Tab PO SCH (09:22)
[2018-05-02] MEDS: Hydrocodone/APAP 5mg/325mg Tab PO PRN (13:22)
--- NOTE | 2018-05-02 20:15 | Consultation ---
DATE OF CONSULTATION: 05/02/2018 PSYCHIATRIC CONSULTATION PHYSICIAN REQUESTING CONSULTATION: Tayo Sanchez M.D. REASON FOR CONSULTATION: Possible psychosis. HISTORY OF PRESENT ILLNESS: This patient is a 72-year-old woman diagnosed to have TIA and has been evaluated at [facility] and has been transferred over here. The patient is being currently worked up neurologically and a psychiatric consultation is called to address the issue of her psychosis. Staff was spoken to. The patient is interviewed. During the interview, the patient has been mentioning that she has been seeing rats next to the bed, but at this time this afternoon, it started to clear up and then she is not seeing any more rats. The patient is denying prior psychiatric hospitalizations or treatments. The patient has been having problem with memory; one minute she is seeing something and the next minute, she is negating the same. The patient's sleep and appetite prior to the hospitalization are reported to be fair. PAST PSYCHIATRIC HISTORY: The patient denies any prior psychiatric hospitalizations. SOCIAL HISTORY: The patient is living with her daughter and she states that the daughter is supportive. MENTAL EXAMINATION: The patient is a 72-year-old woman looking her stated age, superficially cooperative, getting easily irritable. The patient has short-term memory deficits, but long-term memory seems to be fair. The patient has been having visual hallucinations, but no command hallucinations are reported. The patient is denying any delusions at this time. The patient is not suicidal or homicidal. The patient's coping skills at this time are noted to be poor. The patient, however, is noted to be alert and awake. DIAGNOSTIC IMPRESSION: AXIS I: Psychotic disorder, not otherwise specified, rule out delirium. PLAN: To closely monitor the patient rather then starting on a neuroleptic medication at this time. Once patient is medically cleared, possibly the patient is going to be looked into starting a low dose of an antipsychotic medication if the visual hallucinations persist. Otherwise, the patient is going to be maintained on Ativan on a p.r.n. basis and followed up. JOB# [id number]
--- NOTE | 2018-05-02 21:58 | Internal Medicine Prog Note ---
Internal Medicine Subjective - Subjective Service Date: 05/02/18 Patient is:: awake, verbal Per staff patient has:: tolerating meds Internal Medicine Objective - Results Result Diagrams: 04/30/18 06:08 04/30/18 06:08 Recent Labs: Laboratory Last Values WBC 7.6 Th/cmm (4.8-10.8) 04/30/18 06:08 RBC 4.63 Mil/cmm (3.80-5.20) 04/30/18 06:08 Hgb 12.2 gm/dL (12-16) 04/30/18 06:08 Hct 37.2 % (41.0-60) L 04/30/18 06:08 MCV 80.2 fl (81-100) L 04/30/18 06:08 MCH 26.2 pg (27.0-31.0) L 04/30/18 06:08 MCHC Differential 32.7 pg (28.0-36.0) 04/30/18 06:08 RDW 13.3 % (11.5-20.0) 04/30/18 06:08 Plt Count 199 Th/cmm (150-400) 04/30/18 06:08 MPV 10.1 fl 04/30/18 06:08 Neutrophils % 47.7 % (40.0-80.0) 04/30/18 06:08 Lymphocytes % 41.9 % (20.0-50.0) 04/30/18 06:08 Monocytes % 7.7 % (2.0-10.0) 04/30/18 06:08 Eosinophils % 1.9 % (0.0-5.0) 04/30/18 06:08 Basophils % 0.8 % (0.0-2.0) 04/30/18 06:08 Sodium 135 mEq/L (136-145) L 04/30/18 06:08 Potassium 3.7 mEq/L (3.5-5.1) 04/30/18 06:08 Chloride 101 mEq/L (98-107) 04/30/18 06:08 Carbon Dioxide 27.2 mEq/L (21.0-31.0) 04/30/18 06:08 Anion Gap 10.5 (7.0-16.0) 04/30/18 06:08 BUN 29 mg/dL (7-25) H 04/30/18 06:08 Creatinine 0.9 mg/dL (0.6-1.2) 04/30/18 06:08 Est GFR ( Amer) > 60.0 ml/min (>90) 04/30/18 06:08 Est GFR (Non-Af Amer) > 60.0 ml/min 04/30/18 06:08 BUN/Creatinine Ratio 32.2 04/30/18 06:08 Glucose 114 mg/dL (70-105) H 04/30/18 06:08 POC Glucose 235 MG/DL (70 - 105) H 05/02/18 12:48 Hemoglobin A1c % 7.6 % (4.0-6.0) H 04/28/18 16:02 Calcium 9.1 mg/dL (8.6-10.3) 04/30/18 06:08 Troponin I 0.01 ng/mL (0.01-0.05) 04/27/18 15:15 Triglycerides 298 mg/dL (<150) H 04/27/18 07:00 Cholesterol 279 mg/dL (<200) H 04/27/18 07:00 LDL Cholesterol Direct 171 mg/dL (75-193) 04/27/18 07:00 HDL Cholesterol 47 mg/dL (23-92) 04/27/18 07:00 TSH 2.94 uIU/ml (0.34-5.60) 04/27/18 07:00 - Physical Exam Vitals and I&O: Vital Signs Temp 97.4 F 05/02/18 20:00 Pulse 55 05/02/18 20:00 Resp 17 05/02/18 20:00 BP 164/51 05/02/18 20:00 Pulse Ox 98 05/02/18 20:00 Intake & Output 05/02/18 05/02/18 05/03/18 06:59 18:59 06:59 Intake Total 200 480 Balance 200 480 Weight (lbs) 71.214 kg 71.214 kg Intake: Oral 200 480 Other: # Voids 3 Weight Source Estimated Estimated Active Medications: Current Medications Acetaminophen (Tylenol) 650 mg PO Q6H PRN PRN Reason: MILD PAIN OR HEADACHE Stop: 06/25/18 22:12 Last Admin: 04/28/18 18:11 Dose: 650 mg Acetaminophen/Hydrocodone Bitart ([place] 5mg/325mg) 1 tab PO Q6H PRN PRN Reason: Headache Stop: 06/26/18 19:47 Last Admin: 05/02/18 13:22 Dose: 1 tab Aspirin (Aspirin Chewable) 81 mg PO DAILY [facility] Stop: 06/26/18 08:59 Last Admin: 05/02/18 09:22 Dose: 81 mg Insulin Aspart (Novolog Insulin Sliding Scale) 0 units SUBQ Q6HR RM; Protocol Stop: 06/26/18 05:59 Last Admin: 05/02/18 18:52 Dose: Not Given Metoprolol Succinate (Toprol Xl) 25 mg PO DAILY [facility] Stop: 06/26/18 08:59 Last Admin: 05/02/18 09:22 Dose: Not Given Morphine Sulfate (Morphine) 2 mg IVP Q4HR PRN PRN Reason: Pain (Severe) Stop: 06/25/18 22:13 Morphine Sulfate (Morphine) 1 mg IVP Q4HR PRN PRN Reason: Pain (Moderate) Stop: 06/25/18 22:14 Ondansetron HCl (Zofran) 4 mg IV Q6H PRN PRN Reason: Nausea / Vomiting Stop: 06/25/18 22:15 Temazepam (Restoril) 30 mg PO HS PRN; Protocol PRN Reason: Insomnia Stop: 06/26/18 22:51 General: weak, alert HEENT: NC/AT, PERRLA Neck: Supple Lungs: CTAB Cardiovascular: RRR, Normal S1, Normal S2, without murmur Abdomen: soft, non-tender, non-distended Neurological: alert Internal Medicine Assmt/Plan - Assessment Assessment: TIA R/O CVA- CT HEAD NEGATIVE, OLD INFARCT HX CAD DM HTN HYPERCHOLESTEREMIA HYPOTHYROIDISM - Plan Plan: cpm Nutritional Asmnt/Malnutr-PDOC - Dietary Evaluation Malnutrition Findings (Please click <Entered> for more info): Nutritional Asmnt/Malnutrition Start: 04/29/18 13: 51 Text: Status: Complete Freq: Protocol: Document 04/29/18 13:51 LLUC (Rec: 04/29/18 14:02 LLUC [email or web address]) Nutritional Asmnt/Malnutrition Patient General Information Nutritional Screening Moderate Risk Diagnosis TIA Pertinent Medical Hx/Surgical Hx CAD s/p bypass, HTN, Hypercholesterolemia, neuropathy, DM, hypothyroidism Subjective Information PO intake 75-100% per EMR. Per RN, PO intake good, no issues with meals noted. Current Diet Order/ Nutrition Support CCHO - 45g Pertinent Medications novolog, zofran Pertinent Labs 04/28/18: Na 132, BUN 31, Crea 0 .9, Gluc 203, POC 139-224, A1C 7.6 Nutritional Hx/Data Height 1.52 m Height (Calculated Centimeters) 152.4 Current Weight (lbs) 72.121 kg Weight (Calculated Kilograms) 72.1 Weight (Calculated Grams) 71479.2 [place] Body Weight 100 % [place] Body Weight 159 Body Mass Index (BMI) 31.0 Weight Status Obese GI Symptoms GI Symptoms None Difficult in: None Food Allergies No Cultural/Ethnic/[employer]ond[employer] Belief unknown Usual diet at home unknown Skin Integrity/Comment: Intact but slightly moist, jose 14 per nursing Current %PO Good (75-100%) Estimated Nutritional Goals BEE in Kcals: Adj wt of IBW Calories/Kcals/Kg 25-30 Kcals/Kg Kcals Calculated 6363-2446 Protein: Adj wt of IBW Protein g/k.8-1 g/Kg Protein Calculated 42-52g Fluid: ml 4272-7900 mL/day (1mL/kcal) Nutritional Problem 1. Problem Problem Altered nutrition-related labs Etiology insulin resistance Signs/Symptoms: hyperglycemia, POC 139-224, A1C 7.6% Malnutrition Related to Morbid Obesity Malnutrition related to morbid obesity No Intervention/Recommendation Comments 1. Recommend continuing current diet order. 2. Recommend MD to adjust insulin regimen to minimize hyperglycemia. Expected Outcomes/Goals Expected Outcomes/Goals Goal: PO intake to meet at least 75% of nutritional needs . Monitor PO intake, wt, labs and skin integrity F/U as moderate risk in 3-5 days, 05/02-05/04
[2018-05-03] MEDS: INSULIN ASPART SLIDING SCALE 100 UNITS/ML UNIT SUBQ SCH ×4 (00:27→17:46)
[2018-05-03] MEDS: Aspirin 81mg Chewable Tab PO SCH (08:46)
--- NOTE | 2018-05-03 15:41 | General Progress Note ---
Subjective - Review of Systems Service Date: 05/03/18 Subjective: awake and alert no distress Objective - Results Result Diagrams: 04/30/18 06:08 04/30/18 06:08 Recent Labs: Laboratory Last Values WBC 7.6 Th/cmm (4.8-10.8) 04/30/18 06:08 RBC 4.63 Mil/cmm (3.80-5.20) 04/30/18 06:08 Hgb 12.2 gm/dL (12-16) 04/30/18 06:08 Hct 37.2 % (41.0-60) L 04/30/18 06:08 MCV 80.2 fl (81-100) L 04/30/18 06:08 MCH 26.2 pg (27.0-31.0) L 04/30/18 06:08 MCHC Differential 32.7 pg (28.0-36.0) 04/30/18 06:08 RDW 13.3 % (11.5-20.0) 04/30/18 06:08 Plt Count 199 Th/cmm (150-400) 04/30/18 06:08 MPV 10.1 fl 04/30/18 06:08 Neutrophils % 47.7 % (40.0-80.0) 04/30/18 06:08 Lymphocytes % 41.9 % (20.0-50.0) 04/30/18 06:08 Monocytes % 7.7 % (2.0-10.0) 04/30/18 06:08 Eosinophils % 1.9 % (0.0-5.0) 04/30/18 06:08 Basophils % 0.8 % (0.0-2.0) 04/30/18 06:08 Sodium 135 mEq/L (136-145) L 04/30/18 06:08 Potassium 3.7 mEq/L (3.5-5.1) 04/30/18 06:08 Chloride 101 mEq/L (98-107) 04/30/18 06:08 Carbon Dioxide 27.2 mEq/L (21.0-31.0) 04/30/18 06:08 Anion Gap 10.5 (7.0-16.0) 04/30/18 06:08 BUN 29 mg/dL (7-25) H 04/30/18 06:08 Creatinine 0.9 mg/dL (0.6-1.2) 04/30/18 06:08 Est GFR ( Amer) > 60.0 ml/min (>90) 04/30/18 06:08 Est GFR (Non-Af Amer) > 60.0 ml/min 04/30/18 06:08 BUN/Creatinine Ratio 32.2 04/30/18 06:08 Glucose 114 mg/dL (70-105) H 04/30/18 06:08 POC Glucose 96 MG/DL (70 - 105) 05/03/18 11:55 Hemoglobin A1c % 7.6 % (4.0-6.0) H 04/28/18 16:02 Calcium 9.1 mg/dL (8.6-10.3) 04/30/18 06:08 Troponin I 0.01 ng/mL (0.01-0.05) 04/27/18 15:15 Triglycerides 298 mg/dL (<150) H 04/27/18 07:00 Cholesterol 279 mg/dL (<200) H 04/27/18 07:00 LDL Cholesterol Direct 171 mg/dL (75-193) 04/27/18 07:00 HDL Cholesterol 47 mg/dL (23-92) 04/27/18 07:00 TSH 2.94 uIU/ml (0.34-5.60) 04/27/18 07:00 - Physical Exam Vitals and I&O: Vital Signs Temp 97.2 F 05/03/18 12:05 Pulse 53 05/03/18 13:41 Resp 19 05/03/18 12:05 BP 142/61 05/03/18 12:05 Pulse Ox 98 05/03/18 12:05 Intake & Output 05/02/18 05/03/18 05/03/18 18:59 06:59 18:59 Intake Total 480 200 Balance 480 200 Weight (lbs) 71.214 kg 71.214 kg Intake: Oral 480 200 Other: # Voids 3 # Bowel Movements 0 Weight Source Estimated Bedscale Active Medications: Current Medications Acetaminophen (Tylenol) 650 mg PO Q6H PRN PRN Reason: MILD PAIN OR HEADACHE Stop: 06/25/18 22:12 Last Admin: 04/28/18 18:11 Dose: 650 mg Acetaminophen/Hydrocodone Bitart (Mcdavid 5mg/325mg) 1 tab PO Q6H PRN PRN Reason: Headache Stop: 06/26/18 19:47 Last Admin: 05/02/18 13:22 Dose: 1 tab Aspirin (Aspirin Chewable) 81 mg PO DAILY [facility] Stop: 06/26/18 08:59 Last Admin: 05/03/18 08:46 Dose: 81 mg Insulin Aspart (Novolog Insulin Sliding Scale) 0 units SUBQ Q6HR RM; Protocol Stop: 06/26/18 05:59 Last Admin: 05/03/18 13:34 Dose: Not Given Metoprolol Succinate (Toprol Xl) 25 mg PO DAILY [facility] Stop: 06/26/18 08:59 Last Admin: 05/03/18 08:46 Dose: 25 mg Morphine Sulfate (Morphine) 2 mg IVP Q4HR PRN PRN Reason: Pain (Severe) Stop: 06/25/18 22:13 Morphine Sulfate (Morphine) 1 mg IVP Q4HR PRN PRN Reason: Pain (Moderate) Stop: 06/25/18 22:14 Ondansetron HCl (Zofran) 4 mg IV Q6H PRN PRN Reason: Nausea / Vomiting Stop: 06/25/18 22:15 Temazepam (Restoril) 30 mg PO HS PRN; Protocol PRN Reason: Insomnia Stop: 06/26/18 22:51 General: Alert, No acute distress Cardiovascular: Regular rate Lungs: Clear to auscultation Abdomen: Bowel sounds Neurological: Normal gait Assessment/Plan - Assessment Assessment: TIA R/O CVA- CT HEAD NEGATIVE, OLD INFARCT HX CAD DM HTN HYPERCHOLESTEREMIA HYPOTHYROIDISM - Plan Plan: cpm monitor vitals Nutritional Asmnt/Malnutr-PDOC - Dietary Evaluation Malnutrition Findings (Please click <Entered> for more info): Nutritional Asmnt/Malnutrition Start: 04/29/18 13: 51 Text: Status: Complete Freq: Protocol: Document 04/29/18 13:51 LLUC (Rec: 04/29/18 14:02 LLUC [email or web address]) Nutritional Asmnt/Malnutrition Patient General Information Nutritional Screening Moderate Risk Diagnosis TIA Pertinent Medical Hx/Surgical Hx CAD s/p bypass, HTN, Hypercholesterolemia, neuropathy, DM, hypothyroidism Subjective Information PO intake 75-100% per EMR. Per RN, PO intake good, no issues with meals noted. Current Diet Order/ Nutrition Support CCHO - 45g Pertinent Medications novolog, zofran Pertinent Labs 04/28/18: Na 132, BUN 31, Crea 0 .9, Gluc 203, POC 139-224, A1C 7.6 Nutritional Hx/Data Height 1.52 m Height (Calculated Centimeters) 152.4 Current Weight (lbs) 72.121 kg Weight (Calculated Kilograms) 72.1 Weight (Calculated Grams) 56166.2 [place] Body Weight 100 % [place] Body Weight 159 Body Mass Index (BMI) 31.0 Weight Status Obese GI Symptoms GI Symptoms None Difficult in: None Food Allergies No Cultural/Ethnic/Holiness Belief unknown Usual diet at home unknown Skin Integrity/Comment: Intact but slightly moist, jose 14 per nursing Current %PO Good (75-100%) Estimated Nutritional Goals BEE in Kcals: Adj wt of IBW Calories/Kcals/Kg 25-30 Kcals/Kg Kcals Calculated 0761-5755 Protein: Adj wt of IBW Protein g/k.8-1 g/Kg Protein Calculated 42-52g Fluid: ml 4254-1862 mL/day (1mL/kcal) Nutritional Problem 1. Problem Problem Altered nutrition-related labs Etiology insulin resistance Signs/Symptoms: hyperglycemia, POC 139-224, A1C 7.6% Malnutrition Related to Morbid Obesity Malnutrition related to morbid obesity No Intervention/Recommendation Comments 1. Recommend continuing current diet order. 2. Recommend MD to adjust insulin regimen to minimize hyperglycemia. Expected Outcomes/Goals Expected Outcomes/Goals Goal: PO intake to meet at least 75% of nutritional needs . Monitor PO intake, wt, labs and skin integrity F/U as moderate risk in 3-5 days, 05/02-05/04
[2018-05-04] MEDS: INSULIN ASPART SLIDING SCALE 100 UNITS/ML UNIT SUBQ SCH ×4 (00:11→19:21)
[2018-05-04] MEDS: Aspirin 81mg Chewable Tab PO SCH (08:59)
--- NOTE | 2018-05-04 12:11 | General Progress Note ---
Subjective - Review of Systems Service Date: 05/14/18 Subjective: awake and alert no distress no fever Objective - Results Result Diagrams: 04/30/18 06:08 04/30/18 06:08 Recent Labs: Laboratory Last Values WBC 7.6 Th/cmm (4.8-10.8) 04/30/18 06:08 RBC 4.63 Mil/cmm (3.80-5.20) 04/30/18 06:08 Hgb 12.2 gm/dL (12-16) 04/30/18 06:08 Hct 37.2 % (41.0-60) L 04/30/18 06:08 MCV 80.2 fl (81-100) L 04/30/18 06:08 MCH 26.2 pg (27.0-31.0) L 04/30/18 06:08 MCHC Differential 32.7 pg (28.0-36.0) 04/30/18 06:08 RDW 13.3 % (11.5-20.0) 04/30/18 06:08 Plt Count 199 Th/cmm (150-400) 04/30/18 06:08 MPV 10.1 fl 04/30/18 06:08 Neutrophils % 47.7 % (40.0-80.0) 04/30/18 06:08 Lymphocytes % 41.9 % (20.0-50.0) 04/30/18 06:08 Monocytes % 7.7 % (2.0-10.0) 04/30/18 06:08 Eosinophils % 1.9 % (0.0-5.0) 04/30/18 06:08 Basophils % 0.8 % (0.0-2.0) 04/30/18 06:08 Sodium 135 mEq/L (136-145) L 04/30/18 06:08 Potassium 3.7 mEq/L (3.5-5.1) 04/30/18 06:08 Chloride 101 mEq/L (98-107) 04/30/18 06:08 Carbon Dioxide 27.2 mEq/L (21.0-31.0) 04/30/18 06:08 Anion Gap 10.5 (7.0-16.0) 04/30/18 06:08 BUN 29 mg/dL (7-25) H 04/30/18 06:08 Creatinine 0.9 mg/dL (0.6-1.2) 04/30/18 06:08 Est GFR ( Amer) > 60.0 ml/min (>90) 04/30/18 06:08 Est GFR (Non-Af Amer) > 60.0 ml/min 04/30/18 06:08 BUN/Creatinine Ratio 32.2 04/30/18 06:08 Glucose 114 mg/dL (70-105) H 04/30/18 06:08 POC Glucose 217 MG/DL (70 - 105) H 05/04/18 11:32 Hemoglobin A1c % 7.6 % (4.0-6.0) H 04/28/18 16:02 Calcium 9.1 mg/dL (8.6-10.3) 04/30/18 06:08 Troponin I 0.01 ng/mL (0.01-0.05) 04/27/18 15:15 Triglycerides 298 mg/dL (<150) H 04/27/18 07:00 Cholesterol 279 mg/dL (<200) H 04/27/18 07:00 LDL Cholesterol Direct 171 mg/dL (75-193) 04/27/18 07:00 HDL Cholesterol 47 mg/dL (23-92) 04/27/18 07:00 TSH 2.94 uIU/ml (0.34-5.60) 04/27/18 07:00 - Physical Exam Vitals and I&O: Vital Signs Temp 97.3 F 05/04/18 11:42 Pulse 59 05/04/18 11:42 Resp 18 05/04/18 11:42 BP 139/66 05/04/18 11:42 Pulse Ox 98 05/04/18 11:42 Intake & Output 05/03/18 05/04/18 05/04/18 18:59 06:59 18:59 Intake Total 590 200 Output Total 0 Balance 590 200 Weight (lbs) 67.132 kg 68.629 kg Intake: Oral 590 200 Output: Stool 0 Other: # Voids 3 1 # Bowel Movements 1 0 Stool Characteristics Formed Formed Weight Source Bedscale Bedscale Active Medications: Current Medications Acetaminophen (Tylenol) 650 mg PO Q6H PRN PRN Reason: MILD PAIN OR HEADACHE Stop: 06/25/18 22:12 Last Admin: 05/04/18 01:37 Dose: 650 mg Acetaminophen/Hydrocodone Bitart ([place] 5mg/325mg) 1 tab PO Q6H PRN PRN Reason: Headache Stop: 06/26/18 19:47 Last Admin: 05/02/18 13:22 Dose: 1 tab Aspirin (Aspirin Chewable) 81 mg PO DAILY [facility] Stop: 06/26/18 08:59 Last Admin: 05/04/18 08:59 Dose: 81 mg Insulin Aspart (Novolog Insulin Sliding Scale) 0 units SUBQ Q6HR RM; Protocol Stop: 06/26/18 05:59 Last Admin: 05/04/18 06:58 Dose: Not Given Metoprolol Succinate (Toprol Xl) 25 mg PO DAILY [facility] Stop: 06/26/18 08:59 Last Admin: 05/04/18 08:59 Dose: 25 mg Ondansetron HCl (Zofran) 4 mg IV Q6H PRN PRN Reason: Nausea / Vomiting Stop: 06/25/18 22:15 Temazepam (Restoril) 30 mg PO HS PRN; Protocol PRN Reason: Insomnia Stop: 06/26/18 22:51 General: Alert, No acute distress Cardiovascular: Regular rate Lungs: Clear to auscultation Abdomen: Bowel sounds Neurological: Normal gait Assessment/Plan - Assessment Assessment: TIA R/O CVA- CT HEAD NEGATIVE, OLD INFARCT HX CAD DM HTN HYPERCHOLESTEREMIA HYPOTHYROIDISM - Plan Plan: cpm monitor vitals labs Nutritional Asmnt/Malnutr-PDOC - Dietary Evaluation Malnutrition Findings (Please click <Entered> for more info): Nutritional Asmnt/Malnutrition Start: 04/29/18 13: 51 Text: Status: Complete Freq: Protocol: Document 04/29/18 13:51 LLUC (Rec: 04/29/18 14:02 LLUC [email or web address]) Nutritional Asmnt/Malnutrition Patient General Information Nutritional Screening Moderate Risk Diagnosis TIA Pertinent Medical Hx/Surgical Hx CAD s/p bypass, HTN, Hypercholesterolemia, neuropathy, DM, hypothyroidism Subjective Information PO intake 75-100% per EMR. Per RN, PO intake good, no issues with meals noted. Current Diet Order/ Nutrition Support CCHO - 45g Pertinent Medications novolog, zofran Pertinent Labs 04/28/18: Na 132, BUN 31, Crea 0 .9, Gluc 203, POC 139-224, A1C 7.6 Nutritional Hx/Data Height 1.52 m Height (Calculated Centimeters) 152.4 Current Weight (lbs) 72.121 kg Weight (Calculated Kilograms) 72.1 Weight (Calculated Grams) 53114.2 [place] Body Weight 100 % [place] Body Weight 159 Body Mass Index (BMI) 31.0 Weight Status Obese GI Symptoms GI Symptoms None Difficult in: None Food Allergies No Cultural/Ethnic/Muslim Belief unknown Usual diet at home unknown Skin Integrity/Comment: Intact but slightly moist, jose 14 per nursing Current %PO Good (75-100%) Estimated Nutritional Goals BEE in Kcals: Adj wt of IBW Calories/Kcals/Kg 25-30 Kcals/Kg Kcals Calculated 0021-6588 Protein: Adj wt of IBW Protein g/k.8-1 g/Kg Protein Calculated 42-52g Fluid: ml 2226-8048 mL/day (1mL/kcal) Nutritional Problem 1. Problem Problem Altered nutrition-related labs Etiology insulin resistance Signs/Symptoms: hyperglycemia, POC 139-224, A1C 7.6% Malnutrition Related to Morbid Obesity Malnutrition related to morbid obesity No Intervention/Recommendation Comments 1. Recommend continuing current diet order. 2. Recommend MD to adjust insulin regimen to minimize hyperglycemia. Expected Outcomes/Goals Expected Outcomes/Goals Goal: PO intake to meet at least 75% of nutritional needs . Monitor PO intake, wt, labs and skin integrity F/U as moderate risk in 3-5 days, 05/02-05/04
[2018-05-05] MEDS: INSULIN ASPART SLIDING SCALE 100 UNITS/ML UNIT SUBQ SCH ×2 (00:48→05:26)
[2018-05-05] MEDS: Aspirin 81mg Chewable Tab PO SCH (08:51)
--- NOTE | 2018-05-05 11:57 | Internal Medicine Prog Note ---
Internal Medicine Subjective - Subjective Service Date: 05/05/18 Patient is:: awake, verbal Per staff patient has:: tolerating meds Internal Medicine Objective - Results Result Diagrams: 04/30/18 06:08 04/30/18 06:08 Recent Labs: Laboratory Last Values WBC 7.6 Th/cmm (4.8-10.8) 04/30/18 06:08 RBC 4.63 Mil/cmm (3.80-5.20) 04/30/18 06:08 Hgb 12.2 gm/dL (12-16) 04/30/18 06:08 Hct 37.2 % (41.0-60) L 04/30/18 06:08 MCV 80.2 fl (81-100) L 04/30/18 06:08 MCH 26.2 pg (27.0-31.0) L 04/30/18 06:08 MCHC Differential 32.7 pg (28.0-36.0) 04/30/18 06:08 RDW 13.3 % (11.5-20.0) 04/30/18 06:08 Plt Count 199 Th/cmm (150-400) 04/30/18 06:08 MPV 10.1 fl 04/30/18 06:08 Neutrophils % 47.7 % (40.0-80.0) 04/30/18 06:08 Lymphocytes % 41.9 % (20.0-50.0) 04/30/18 06:08 Monocytes % 7.7 % (2.0-10.0) 04/30/18 06:08 Eosinophils % 1.9 % (0.0-5.0) 04/30/18 06:08 Basophils % 0.8 % (0.0-2.0) 04/30/18 06:08 Sodium 135 mEq/L (136-145) L 04/30/18 06:08 Potassium 3.7 mEq/L (3.5-5.1) 04/30/18 06:08 Chloride 101 mEq/L (98-107) 04/30/18 06:08 Carbon Dioxide 27.2 mEq/L (21.0-31.0) 04/30/18 06:08 Anion Gap 10.5 (7.0-16.0) 04/30/18 06:08 BUN 29 mg/dL (7-25) H 04/30/18 06:08 Creatinine 0.9 mg/dL (0.6-1.2) 04/30/18 06:08 Est GFR ( Amer) > 60.0 ml/min (>90) 04/30/18 06:08 Est GFR (Non-Af Amer) > 60.0 ml/min 04/30/18 06:08 BUN/Creatinine Ratio 32.2 04/30/18 06:08 Glucose 114 mg/dL (70-105) H 04/30/18 06:08 POC Glucose 125 MG/DL (70-105) H 05/05/18 05:24 Hemoglobin A1c % 7.6 % (4.0-6.0) H 04/28/18 16:02 Calcium 9.1 mg/dL (8.6-10.3) 04/30/18 06:08 Troponin I 0.01 ng/mL (0.01-0.05) 04/27/18 15:15 Triglycerides 298 mg/dL (<150) H 04/27/18 07:00 Cholesterol 279 mg/dL (<200) H 04/27/18 07:00 LDL Cholesterol Direct 171 mg/dL (75-193) 04/27/18 07:00 HDL Cholesterol 47 mg/dL (23-92) 04/27/18 07:00 TSH 2.94 uIU/ml (0.34-5.60) 04/27/18 07:00 - Physical Exam Vitals and I&O: Vital Signs Temp 96.9 F 05/05/18 09:37 Pulse 67 05/05/18 09:37 Resp 17 05/05/18 09:37 BP 117/98 05/05/18 09:37 Pulse Ox 97 05/05/18 09:37 Intake & Output 05/04/18 05/05/18 05/05/18 18:59 06:59 18:59 Intake Total 500 Balance 500 Weight (lbs) 151 lb Intake: Oral 500 Other: # Voids 3 # Bowel Movements 1 Stool Characteristics Formed Formed Weight Source Bedscale Active Medications: Current Medications Acetaminophen (Tylenol) 650 mg PO Q6H PRN PRN Reason: MILD PAIN OR HEADACHE Stop: 06/25/18 22:12 Last Admin: 05/04/18 01:37 Dose: 650 mg Aspirin (Aspirin Chewable) 81 mg PO DAILY [facility] Stop: 06/26/18 08:59 Last Admin: 05/05/18 08:51 Dose: 81 mg Insulin Aspart (Novolog Insulin Sliding Scale) 0 units SUBQ Q6HR [facility]; Protocol Stop: 06/26/18 05:59 Last Admin: 05/05/18 05:26 Dose: Not Given Metoprolol Succinate (Toprol Xl) 25 mg PO DAILY [facility] Stop: 06/26/18 08:59 Last Admin: 05/05/18 08:51 Dose: 25 mg Ondansetron HCl (Zofran) 4 mg IV Q6H PRN PRN Reason: Nausea / Vomiting Stop: 06/25/18 22:15 General: weak, alert HEENT: NC/AT, PERRLA Neck: Supple Lungs: CTAB Cardiovascular: RRR, Normal S1, Normal S2, without murmur Abdomen: soft, non-tender, non-distended Neurological: alert Internal Medicine Assmt/Plan - Assessment Assessment: TIA R/O CVA- CT HEAD NEGATIVE, OLD INFARCT HX CAD DM HTN HYPERCHOLESTEREMIA HYPOTHYROIDISM - Plan Plan: transfer to [facility] today once bed available continue current plan of care Nutritional Asmnt/Malnutr-PDOC - Dietary Evaluation Malnutrition Findings (Please click <Entered> for more info): Nutritional Asmnt/Malnutrition Start: 04/29/18 13: 51 Text: Status: Complete Freq: Protocol: Document 04/29/18 13:51 LLUC (Rec: 04/29/18 14:02 LLUC [email or web address]) Nutritional Asmnt/Malnutrition Patient General Information Nutritional Screening Moderate Risk Diagnosis TIA Pertinent Medical Hx/Surgical Hx CAD s/p bypass, HTN, Hypercholesterolemia, neuropathy, DM, hypothyroidism Subjective Information PO intake 75-100% per EMR. Per RN, PO intake good, no issues with meals noted. Current Diet Order/ Nutrition Support CCHO - 45g Pertinent Medications novolog, zofran Pertinent Labs 04/28/18: Na 132, BUN 31, Crea 0 .9, Gluc 203, POC 139-224, A1C 7.6 Nutritional Hx/Data Height 5 ft Height (Calculated Centimeters) 152.4 Current Weight (lbs) 159 lb Weight (Calculated Kilograms) 72.1 Weight (Calculated Grams) 40088.2 [place] Body Weight 100 % [place] Body Weight 159 Body Mass Index (BMI) 31.0 Weight Status Obese GI Symptoms GI Symptoms None Difficult in: None Food Allergies No Cultural/Ethnic/Orthodox Belief unknown Usual diet at home unknown Skin Integrity/Comment: Intact but slightly moist, jose 14 per nursing Current %PO Good (75-100%) Estimated Nutritional Goals BEE in Kcals: Adj wt of IBW Calories/Kcals/Kg 25-30 Kcals/Kg Kcals Calculated 4610-5802 Protein: Adj wt of IBW Protein g/k.8-1 g/Kg Protein Calculated 42-52g Fluid: ml 8926-9625 mL/day (1mL/kcal) Nutritional Problem 1. Problem Problem Altered nutrition-related labs Etiology insulin resistance Signs/Symptoms: hyperglycemia, POC 139-224, A1C 7.6% Malnutrition Related to Morbid Obesity Malnutrition related to morbid obesity No Intervention/Recommendation Comments 1. Recommend continuing current diet order. 2. Recommend MD to adjust insulin regimen to minimize hyperglycemia. Expected Outcomes/Goals Expected Outcomes/Goals Goal: PO intake to meet at least 75% of nutritional needs . Monitor PO intake, wt, labs and skin integrity F/U as moderate risk in 3-5 days, 05/02-05/04
== END 2018-05-05 13:15 | disposition short-term general hospital (02) | DRG 65 ==
LOC: TELE 20:47 → MSI 04-27 12:58 → TELE 04-27 21:00
PROVIDERS: ADMIT Internal Medicine; ATTEND Internal Medicine
DX: I63.9 Cerebral infarction, unspecified (principal); E87.1 Hypo-osmolality and hyponatremia; I10 Essential (primary) hypertension; E78.00 Pure hypercholesterolemia, unspecified; E03.9 Hypothyroidism, unspecified; Z88.6 Allergy status to analgesic agent; Z95.1 Presence of aortocoronary bypass graft; E11.42 Type 2 diabetes mellitus with diabetic polyneuropathy; F29 Unspecified psychosis not due to a substance or known physiological condition; I25.119 Atherosclerotic heart disease of native coronary artery with unspecified angina pectoris; Z86.73 Personal history of transient ischemic attack (TIA), and cerebral infarction without residual deficits
CPT/HCPCS: 36415-UA; 70460-TC; 80048-TC; 80061-TC; 82948-90; 83036-90; 84443-TC; 84484-TC; 85025-TC; 93005; 93880-TC; 97530; J1815; Q9967; X3904; Z7610